=== PATIENT | male | born 1985 | race Caucasian/White ===

== ENCOUNTER → 2017-07-13 | Outpatient (CLI) | payer MEDICAID | LOC: RAD 11:28 | DX: N50.82 Scrotal pain (principal); N49.2 Inflammatory disorders of scrotum ==

== ENCOUNTER → 2018-06-14 | Outpatient (CLI) | payer MEDICAID | LOC: LAB 13:49 | DX: Z00.00 Encounter for general adult medical examination without abnormal findings (principal) ==